=== PATIENT | female | born 1965 | race Caucasian/White ===

== ENCOUNTER 2018-10-18 16:00 | Emergency (ER) | payer OTHER ==
[2018-10-18] MEDS: DEXAMETHASONE 4 MG TAB PO (17:03)
[2018-10-18] MEDS: ALBUTEROL 0.083% (NEB) 2.5 MG/3 ML AMP HHN (17:15)
== END 2018-10-18 17:54 | disposition home or self-care (01) ==
LOC: FTE 16:00
DX: R06.2 Wheezing (principal)
CPT/HCPCS: 94664; 99283-25